=== PATIENT | female | born 1990 | race African-American/Black ===

== ENCOUNTER 2020-02-17 18:36 | Emergency (ER) | payer OTHER ==
[~2020-02-17] VITALS: Ht 167.6 cm; Wt 75.4 kg
[2020-02-17 19:05] VITALS: BP 123/77
== END 2020-02-17 19:21 | disposition home or self-care (01) ==
LOC: ER 18:38
DX: S60.811A Abrasion of right wrist, initial encounter (principal); X58.XXXA Exposure to other specified factors, initial encounter; Y93.89 Activity, other specified; Y92.89 Other specified places as the place of occurrence of the external cause; Y99.8 Other external cause status
CPT/HCPCS: 99281